=== PATIENT | female | born 1995 | race Caucasian/White ===

== ENCOUNTER 2025-06-20 13:32 | Outpatient (CLI) | payer BC, SELFPAY ==
[2025-06-20 17:40] LABS: Chlamydia DNA Amplified* NOT DETECTED (No Detected); GC DNA Amplified* NOT DETECTED (No Detected)
== END 2025-06-20 13:33 | disposition home or self-care (01) ==
LOC: NFLDUCREF 13:33
PROVIDERS: Visit Provider Nurse Practitioner Family
DX: N89.8 Other specified noninflammatory disorders of vagina (principal); R82.90 Unspecified abnormal findings in urine
CPT/HCPCS: 87086; 87491; 87591